=== PATIENT | female | born 1985 | race Caucasian/White ===

== ENCOUNTER → 2025-01-01 11:36 | Outpatient (REF) | payer OTHER, SELFPAY | LOC: HWWDC 11:36 | PROVIDERS: ATTENDING PHYSICIAN Specialist | DX: Z12.31 Encounter for screening mammogram for malignant neoplasm of breast (principal) | CPT/HCPCS: 77063; 77067 ==

== ENCOUNTER → 2025-01-16 06:18 | Outpatient (REF) | payer OTHER, SELFPAY ==
[2025-01-16 09:54] LABS: Hematocrit 37.5 % (37.0-47.0); Hemoglobin 13.0 g/dL (12.0-16.0); Mean Corp Hgb Conc. 34.7 g/dL (33.0-37.0); Mean Corpuscular Volume 89.1 fL (81.0-99.0); Nucleated Red Blood Cells % 0 %; Platelet Count 318 10^3/uL (130-400); Red Cell Dist. Width 12.2 % (11.5-14.5)
== END ==
LOC: HWLAB 06:18
PROVIDERS: ATTENDING PHYSICIAN Specialist
DX: Z01.812 Encounter for preprocedural laboratory examination (principal)
CPT/HCPCS: 36415; 85025